=== PATIENT | male | born 1975 | race African-American/Black ===

== ENCOUNTER 2016-07-19 07:08 | Emergency (ER) | payer OTHER ==
[~2016-07-19] VITALS: Ht 170.2 cm; Wt 95.7 kg
== END 2016-07-19 09:05 | disposition home or self-care (01) ==
LOC: ED 07:08
PROC: 0HQGXZZ Repair Left Hand Skin, External Approach (ICD-10-PCS; principal; 2016-07-19)
DX: S61.213A Laceration without foreign body of left middle finger without damage to nail, initial encounter (principal); S67.193A Crushing injury of left middle finger, initial encounter; W30.9XXA Contact with unspecified agricultural machinery, initial encounter; Y92.69 Other specified industrial and construction area as the place of occurrence of the external cause
CPT/HCPCS: 90715; 96372; 99283

== ENCOUNTER 2016-07-29 08:04 | Emergency (ER) | payer OTHER ==
[~2016-07-29] VITALS: Ht 157.5 cm; Wt 81.6 kg
== END 2016-07-29 10:30 | disposition home or self-care (01) ==
LOC: ED 08:04
DX: Z48.02 Encounter for removal of sutures (principal)